=== PATIENT | female | born 2000 | race Caucasian/White ===

== ENCOUNTER 2019-05-04 19:44 | Outpatient (REF) | payer BC, SELFPAY | END 2019-05-04 20:04 | LOC: LBN 19:44 | PROVIDERS: Visit Provider Physician Assistant | DX: R30.0 Dysuria (principal); N89.8 Other specified noninflammatory disorders of vagina | CPT/HCPCS: 87086; 87480; 87510; 87660 ==

== ENCOUNTER 2021-02-22 18:06 | Outpatient (REF) | payer BC, SELFPAY | END 2021-02-22 18:07 | disposition home or self-care (01) | LOC: LBN 18:06 | PROVIDERS: Visit Provider Internal Medicine Cardiovascular Disease | DX: N93.0 Postcoital and contact bleeding (principal); R10.2 Pelvic and perineal pain | CPT/HCPCS: 87480; 87510; 87660 ==

== ENCOUNTER 2022-07-05 13:48 | Emergency (ER) | payer OTHER, SELFPAY ==
[2022-07-05 13:55] VITALS: BP 117/75; PULSE 74; RESP 16; TEMP 36.9; O2SAT 97
--- NOTE | 2022-07-05 15:30 | DI.RAD_ITS ---
Exam(s) XR HAND RT COMPLETE EXAM: XR HAND RT COMPLETE CLINICAL HISTORY: contusion hand. TECHNIQUE: 2D digital imaging was performed. COMPARISON: No exams were available for comparison FINDINGS: 3 views There is no evidence of fracture or dislocation. Bone density normal. No osseous lesions nor erosio ns. No radiopaque foreign body. IMPRESSION: No significant osseous findings. DATA REPOSITORY: RADIATION DOSE DELIVERED:
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
== END 2022-07-05 17:07 | disposition home or self-care (01) ==
PROVIDERS: Emergency Provider Physician Assistant
DX: S66.911A Strain of unspecified muscle, fascia and tendon at wrist and hand level, right hand, initial encounter (principal); Y99.0 Civilian activity done for income or pay; Y04.2XXA Assault by strike against or bumped into by another person, initial encounter
CPT/HCPCS: 99283; 73130; 99282

== ENCOUNTER 2023-07-17 10:29 | Emergency (ER) | payer BC, SELFPAY ==
[2023-07-17 10:36] VITALS: BP 136/63; PULSE 105; RESP 18; TEMP 37.3
[2023-07-17] MEDS: ACETAMINOPHEN 1,000 MG/100 ML BTL 400 MG IVPB (11:19)
[2023-07-17] MEDS: Lactated Ringers 1,000 ML 1000 ML IV (11:19)
[2023-07-17] MEDS: Prochlorperazine 10 MG/2 ML VIAL 5 MG IVP (11:19)
[2023-07-17 11:30] LABS: Abs Immature Grans 0.04 10^3/uL (0.0-0.06); Absolute Basophil Count 0.01 10^3/uL (0.0-0.2); Absolute Lymphocyte Count 0.57 10^3/uL (1.2-3.4); Absolute Monocyte Count 0.67 10^3/uL (0.1-0.8); Absolute Neutrophil Count 9.23 10^3/uL (1.2-6.7); Basophils % 0.1; HGB 13.9 g/dL (11.2-15.7); Immature Grans % 0.4; Lymphocytes % 5.4; MCH 28.7 pg (27.0-33.0); MCHC 33.1 % (32.0-36.0); MCV 87 fL (80-95); MPV 9.2 fL (8.0-11.0); Monocytes % 6.4; Neutrophils % 87.7; Platelet Count 293 10^3/uL (130-400); RBC 4.84 10^6/uL (3.93-5.22); RDW 12.8 % (11.7-14.6); RDW-SD 40.7 fL; WBC 10.52 10^3/uL (4.4-10.8)
[2023-07-17 11:42] LABS: ALT 26 U/L (14-59); AST 14 U/L (15-37); Albumin 3.8 g/dL (3.4-5.0); Alkaline Phosphatase 41 U/L (46-116); Anion Gap 10.4 mmol/L (3-11); BUN 15 mg/dL (7-18); Bilirubin, Total 0.9 mg/dL (0.2-1.0); CO2 26.6 mmol/L (21.0-32.0); CREATININE 0.9 mg/dL (0.55-1.02); Chloride 104 mmol/L (98-107); Estimated GFR 91.55 (mL/min/1.73m2); Glucose 119 mg/dL (74-106); Potassium 3.3 mmol/L (3.5-5.1); Sodium 141 mmol/L (136-145); Total Protein 7.4 g/dL (6.4-8.2)
[2023-07-17 11:51] LABS: HCG Qual (Serum) Negative
--- NOTE | 2023-07-17 12:21 | ED.GENADUL_ITS ---
HPI General Date/Time Provider Initiated Documentation: 07/17/23 10:37 . HPI Narrative: This 23-year-old female presents with nausea vomiting and diarrhea for the past 12 hours. She states she is vomited 9 times and had approximately 12 episodes of diarrhea. Denies any blood in stool or vomit. Denies any known sick contacts. Denies any chance of . Denies chest pain or shortness of breath. Related Data Home Medications Medication Instructions Recorded Confirmed potassium chloride 20 mEq 20 meq PO BID #6 tabs 07/17/23 tablet,extended release prochlorperazine maleate 10 mg 10 mg PO Q6H PRN #10 tabs 07/17/23 tablet (Compazine) Previous Rx's Medication Instructions Recorded potassium chloride 20 mEq 20 meq PO BID #6 tabs 07/17/23 tablet,extended release prochlorperazine maleate 10 mg 10 mg PO Q6H PRN #10 tabs 07/17/23 tablet (Compazine) Allergies Allergy/AdvReac Type Severity Reaction Status Date / Time No Known Allergies Allergy Unverified 07/17/23 10:38 General Stated Complaint: Nausea/Vomit/Diar ADRIENNE: 3 Course Vital Signs Vital signs: Vital Signs Temperature 37.3 C 07/17/23 10:36 Pulse 105 H 07/17/23 10:36 Respiratory Rate 18 07/17/23 10:36 Blood Pressure 136/63 07/17/23 10:36 Temperature 37.3 C 07/17/23 10:36 Temperature Source Oral 07/17/23 10:36 Pulse 105 H 07/17/23 10:36 Respiratory Rate 18 07/17/23 10:36 Respiratory Effort Normal, Non-Labored 07/17/23 10:39 Blood Pressure 136/63 07/17/23 10:36 Blood Pressure Position Sitting 07/17/23 10:36 Oxygen Delivery Method Room Air 07/17/23 10:36 Oxygen Flow Rate 0 07/17/23 10:36 Lab/Test Results Lab/Test Results: Laboratory Tests Range/Units 07/17/23 11:15 WBC (4.4-10.8) 10^3/uL 10.52 RBC (3.93-5.22) 10^6/uL 4.84 Hgb (11.2-15.7) g/dL 13.9 Hct (36.0-46.0) % 42.0 MCV (80-95) fL 87 MCH (27.0-33.0) pg 28.7 MCHC (32.0-36.0) % 33.1 RDW (11.7-14.6) % 12.8 Plt Count (130-400) 10^3/uL 293 MPV (8.0-11.0) fL 9.2 Immature Gran % 0.4 Neutrophils % 87.7 Lymphocytes % 5.4 Monocytes % 6.4 Eosinophils % 0.0 Basophils % 0.1 Nucleated RBC % (0.0-0.3) % 0.0 Absolute Neutrophils (1.2-6.7) 10^3/uL 9.23 H Absolute Lymphocytes (1.2-3.4) 10^3/uL 0.57 L Absolute Monocytes (0.1-0.8) 10^3/uL 0.67 Absolute Eosinophils (0.0-0.7) 10^3/uL 0.00 Absolute Basophils (0.0-0.2) 10^3/uL 0.01 Sodium (136-145) mmol/L 141 Potassium (3.5-5.1) mmol/L 3.3 L Chloride (98-107) mmol/L 104 Carbon Dioxide (21.0-32.0) mmol/L 26.6 Anion Gap (3-11) mmol/L 10.4 BUN (7-18) mg/dL 15 Creatinine (0.55-1.02) mg/dL 0.9 Est GFR (CKD-EPI 2020) (mL/min/1.73m2) 91.55 Glucose (74-106) mg/dL 119 H Calcium (8.5-10.1) mg/dL 9.0 Total Bilirubin (0.2-1.0) mg/dL 0.9 AST (15-37) U/L 14 L ALT (14-59) U/L 26 Alkaline Phosphatase (46-116) U/L 41 L Total Protein (6.4-8.2) g/dL 7.4 Albumin (3.4-5.0) g/dL 3.8 Serum HCG, Qual Negative Medical Decision Making 23-year-old female presenting with nausea, vomiting, diarrhea for the past 12 hours Recent antibiotics, did order C. difficile and stool bacterial pathogens however throughout the encounter patient was not experiencing any diarrhea, will hold on ordering these test at this time She is feeling marked improvement, her labs are unremarkable aside from mild hypokalemia at 3.3, this will be supplemented at home 1 L of IV fluids Antiemetics Able to tolerate p.o. at time of reassessment Stable for discharge home at this time Negative test Return precautions reviewed and patient expressed understanding Quality:SDOH Health Related Social Needs: No Data to Display PFSH All Active Problems (Updated 07/17/23 @ 12:26 by MARY KAY Jack) Nausea & vomiting (Acute) Diarrhea (Acute) Social History Smoking/Tobacco Use Status: Never Smoking risk assessment performed?: Yes Alcohol Intake: current Alcohol Intake frequency: holidays/special occasions only Drug use: Occasionally Substance use type: marijuana Housing: house Do you feel safe at home: Yes Do you feel safe in your relationship?: Yes Discharge Plan Disposition Patient Disposition: Home Discharge Details Clinical Impression: Diarrhea, Nausea & vomiting Primary Care Provider: Unknown,Unknown ED Provider: Ysabel Chaney Home Meds and New Rx's Prescriptions: New prochlorperazine maleate [Compazine] 10 mg tablet 10 mg PO Q6H PRNQty: 10 0RF potassium chloride 20 mEq tablet extended release 20 meq PO BID Qty: 6 0RF Discharge Instructions Instructions: Acute Nausea and Vomiting (ED), Acute Diarrhea (ED) Additional Instructions: Take Compazine for nausea and vomiting Regularly liquids until you are able to tolerate p.o., saltines, applesauce, apple juice, toast, bananas as tolerated Your potassium is slightly low, take the potassium pills when you are feeling improved and return earlier should you have new or worsening complaints Stand Alone Forms: Work Release Discharge Data Discharge Date/Time-TO BE ENTERED AT DEPARTURE: 07/17/23 12:32
== END 2023-07-17 12:32 | disposition home or self-care (01) ==
PROVIDERS: Emergency Provider Physician Assistant
DX: R11.2 Nausea with vomiting, unspecified (principal); R19.7 Diarrhea, unspecified; R50.9 Fever, unspecified; E87.6 Hypokalemia
CPT/HCPCS: 80053; 96361; 96374; 96375; 99284; 84703; 85025; J0131; J0780